=== PATIENT | female | born 1965 | race American Indian/Alaskan Native ===

== ENCOUNTER 2019-07-15 09:52 | Emergency (ER) | payer MEDICARE ==
[2019-07-15] MEDS ORDERED: IPRATROPIUM/ALBUTEROL SULFATE 3 ML AMPUL.NEB IH ONE ×2 (14:19→14:23)
[2019-07-15] MEDS ORDERED: methylPREDNISolone Sod Succinate 125 MG/2 ML INJ IV ONE (14:20)
--- NOTE | 2019-07-15 15:09 | XRay Report ---
CHEST PA AND LATERAL VIEWS INDICATION: MAIN: shortness of breath, cough FOR 2 DAYS. COMPARISON: None. FINDINGS: Support devices: None. Heart: Within normal limits. Lungs/Pleura: There is mild diffuse peribronchial cuffing. This could be due to acute or chronic bron chitis. No consolidation or effusion. No pneumothorax. IMPRESSION: 1. Diffuse peribronchial cuffing could be seen in the setting of acute or chronic bronchitis. Signer Name: Zachary Myers MD Signed: 07/15/2019 3:04 PM Workstation Name: [id number]
[2019-07-15 15:26] LABS: Hematocrit 42.7 % (30.3-42.9); Hemoglobin 14.6 gm/dl (10.1-14.3); Mean Corpuscular HGB Conc 34 % (30-34); Mean Corpuscular Volume 107 fl (79-97); Platelet Count 272 K/mm3 (140-440); Red Blood Count 3.99 M/mm3 (3.65-5.03); Red Cell Distribution Width 12.9 % (13.2-15.2)
--- NOTE | 2019-07-15 15:42 | Emergency Department Report ---
- General Chief Complaint: Dyspnea/Respdistress Stated Complaint: DIFFICULTY BREATHING/ABDOMINAL PAIN Time Seen by Provider: 07/15/19 14:18 Source: patient, EMS Mode of arrival: Wheelchair Limitations: No Limitations - History of Present Illness Initial Comments: 54 yo female c/o coughing, bodyaches fever and chills. Symptoms started suddenly last night. Her chest hurts only when she coughs. Cough productive at times of clear phlegm. She denies nausea, vomiting, diarrhea, and abdominal pain. She has hx of Asthma states she used the inhaler but did not feel better. Pt brought in by EMS given ALbuterol 5 mg and Solumedrol 125 mg IV. She is currently in no distress MD Complaint: cough Improves With: nothing Associated Symptoms: chills, myalgias, rhinorrhea, cough. denies: sore throat, vomiting, diarrhea, confusion, right sweats, weight loss Treatments Prior to Arrival: none - Related Data Previous Rx's Medication Instructions Recorded Last Taken Type Amoxicillin/Potassium Clav 1 each PO Q12HR 10 Days #20 tablet 07/15/19 Unknown Rx [Augmentin 875-125 Tablet] methylPREDNISolone [Medrol 4MG 4 mg PO DAILY #1 tab.ds.pk 07/15/19 Unknown Rx DOSEPAK (21 tabs)] Allergies Allergy/AdvReac Type Severity Reaction Status Date / Time No Known Allergies Allergy Unverified 07/15/19 10:26 ED Review of Systems ROS: Stated complaint: DIFFICULTY BREATHING/ABDOMINAL PAIN Other details as noted in HPI Comment: All other systems reviewed and negative Constitutional: see HPI, malaise Cardiovascular: denies: chest pain Endocrine: denies: excessive sweating Gastrointestinal: denies: abdominal pain, nausea, vomiting, constipation Genitourinary: denies: dysuria Skin: denies: rash, lesions Psychiatric: denies: as per HPI ED Past Medical Hx - Past Medical History Hx Asthma: Yes Additional medical history: HIV/ ANXIETY - Medications Home Medications: Home Medications Medication Instructions Recorded Confirmed Last Taken Type Amoxicillin/Potassium Clav 1 each PO Q12HR 10 Days #20 tablet 07/15/19 Unknown Rx [Augmentin 875-125 Tablet] methylPREDNISolone [Medrol 4MG 4 mg PO DAILY #1 tab.ds.pk 07/15/19 Unknown Rx DOSEPAK (21 tabs)] ED Physical Exam - General Limitations: No Limitations General appearance: alert, in no apparent distress, anxious - Head Head exam: Present: atraumatic - Eye Eye exam: Present: normal appearance - ENT ENT exam: Present: normal exam, normal orophraynx, mucous membranes moist, TM's normal bilaterally - Neck Neck exam: Present: full ROM - Respiratory Respiratory exam: Present: normal lung sounds bilaterally, chest wall tenderness. Absent: wheezes, rhonchi, decreased breath sounds - Cardiovascular Cardiovascular Exam: Present: regular rate, normal heart sounds - GI/Abdominal GI/Abdominal exam: Present: soft, normal bowel sounds. Absent: distended, tenderness, guarding, rebound, rigid - Extremities Exam Extremities exam: Present: normal inspection. Absent: pedal edema - Back Exam Back exam: Present: normal inspection - Neurological Exam Neurological exam: Present: alert, oriented X3 - Psychiatric Psychiatric exam: Present: normal affect - Skin Skin exam: Present: warm, dry, intact, normal color. Absent: rash ED Course Vital Signs 07/15/19 07/15/19 10:23 10:31 Temperature 98 F 98.6 F Pulse Rate 62 Respiratory 24 Rate Blood Pressure 130/104 [Left] O2 Sat by Pulse 100 Oximetry - Reevaluation(s) Reevaluation #1: 07/15/19 17:17 Pt completed neb treatments. O2 Sat 100 % Lungs clear breath sounds no wheezing Pt is complaining of chills and generalized body-aches. Temp recheck 98.5 po ED Medical Decision Making - Lab Data Result diagrams: 07/15/19 14:59 07/15/19 14:59 - Radiology Data Radiology results: report reviewed Chest X-ray FINDINGS: Support devices: None. Heart: Within normal limits. Lungs/Pleura: There is mild diffuse peribronchial cuffing. This could be due to acute or chronic bronchitis. No consolidation or effusion. No pneumothorax. IMPRESSION: 1. Diffuse peribronchial cuffing could be seen in the setting of acute or chronic bronchitis. - Medical Decision Making 54 yo female with a hx of Asthma controlled with inhalers at home. Last night she suddenly developed cough, fever chills and bodyaches. She began wheezing and felt some SOB like she usually feels when her asthma flares up. She also report her chest hurt when she coughed only. Prior to arrival to this ER she was given Alubuterl 5mg and Solumedrol 125 mg IV. Upon examination pt was much improved no wheezing no sob vital signs stable. O2 sat 100 %. She did complain of bodyaches and chills. Bloodwork revealed K+ 3.3 GIVEN kcL 20 MEQ PO X 1 CXR showed Bronchitis, Prescribed Augmentin and Medrol dose pack AND continue with all home meds Out patient follow up PCP Critical Care Time: No Critical care attestation.: If time is entered above; I have spent that time in minutes in the direct care of this critically ill patient, excluding procedure time. ED Disposition Clinical Impression: Bronchitis, Hypokalemia Disposition: - TO HOME OR SELFCARE Is pt being admited?: No Does the pt Need Aspirin: No Condition: Stable Instructions: Chronic Bronchitis (ED), Acute Bronchitis (ED) Additional Instructions: Rest increase oral hydration drink at least 6-8 glasses of clear liquids daily, Take medication as prescribed. Follow up with YOUR doctor in 3-5 days. RETURN TO THE ER IF YOU DEVELOP CHEST PAIN, FEVER LASTING MORE THAN 2 DAYS, AND SHORTNESS OF BREATH. The X-ray done today shows signs of Bronchitis. No pneumonia was seen of xray Do not smoke cigarettes. Prescriptions: Amoxicillin/Potassium Clav [Augmentin 875-125 Tablet] 1 each PO Q12HR 10 Days #20 tablet methylPREDNISolone [Medrol 4MG DOSEPAK (21 tabs)] 4 mg PO DAILY #1 tab.ds.pk Referrals: PENELOPE RAMIREZ MD [Primary Care Provider] - 3-5 Days Time of Disposition: 17:23
[2019-07-15 15:57] LABS: Alanine Aminotransferase 10 units/L (7-56); Albumin 4.2 g/dL (3.9-5); BUN/Creatinine Ratio 9; Blood Urea Nitrogen 8 mg/dL (7-17); Hemolysis Index 15
[2019-07-15 16:33] LABS: Basophils % (Manual) 0 % (0.0-1.8); Eosinophils % (Manual) 0 % (0.0-4.3); Platelet Estimate Consistent w Auto; RBC Morphology Normal; Total Cells Counted 100
[2019-07-15] MEDS ORDERED: POTASSIUM CHLORIDE ER 20 MEQ TAB PO ONE (16:54)
[2019-07-15] MEDS ORDERED: KETOROLAC 30 MG/1 ML INJ IV ONE (17:01)
[2019-07-15 18:08] VITALS: BP 108/68
== END 2019-07-15 18:11 | disposition home or self-care (01) ==
LOC: ED 09:52
DX: J40 Bronchitis, not specified as acute or chronic (principal); E87.6 Hypokalemia; F41.9 Anxiety disorder, unspecified; Z21 Asymptomatic human immunodeficiency virus [HIV] infection status; Z79.899 Other long term (current) drug therapy
CPT/HCPCS: 36415; 71046; 80053; 84484; 85007; 85025; 87400; 94640; 96374; 96375; 99284; J1885; J2930